=== PATIENT | male | born 1945 ===

== ENCOUNTER 2017-08-14 13:59 | Day surgery (SDC) | payer MEDICARE, OTHER ==
[~2017-08-14] VITALS: Ht 177.8 cm; Wt 82.8 kg
[~2017-08-14 13:59] MED LIST: ASPI81CH; Carbidopa-Levo1 EAC8; HYDCHL25; Simvastatin20 MG; Zestril30 MG
== END 2017-08-14 16:50 | disposition home or self-care (01) ==
LOC: ORSCSDS 13:59
PROVIDERS: Surgery
PROC: 0DBH8ZX Excision of Cecum, Via Natural or Artificial Opening Endoscopic, Diagnostic (ICD-10-PCS; principal; 2017-08-14 15:15)
PROC: 0DBK8ZX Excision of Ascending Colon, Via Natural or Artificial Opening Endoscopic, Diagnostic (ICD-10-PCS; principal; 2017-08-14 15:15)
DX: Z12.11 Encounter for screening for malignant neoplasm of colon (principal); D12.0 Benign neoplasm of cecum; D12.2 Benign neoplasm of ascending colon; I10 Essential (primary) hypertension; E78.5 Hyperlipidemia, unspecified; Z79.82 Long term (current) use of aspirin; Z79.899 Other long term (current) drug therapy; Z87.891 Personal history of nicotine dependence
CPT/HCPCS: 88305; J7120

== ENCOUNTER 2020-03-27 07:47 | Day surgery (SDC) | payer MEDICARE, OTHER ==
[~2020-03-27] VITALS: Ht 177.8 cm; Wt 82.5 kg
[~2020-03-27 07:47] MED LIST changes: +Aspir 8181 MG PO; +CARBIDOPA-LEVO1 EA15 PO; +HYDCHL25 PO; +ZOCOR20 MG PO; +Zestril30 MG PO
== END 2020-03-27 11:30 | disposition home or self-care (01) ==
LOC: ORSCSDS 07:47
PROVIDERS: Surgery
PROC: 0YU60JZ Supplement Left Inguinal Region with Synthetic Substitute, Open Approach (ICD-10-PCS; principal; 2020-03-27 09:00)
DX: K40.91 Unilateral inguinal hernia, without obstruction or gangrene, recurrent (principal); I10 Essential (primary) hypertension; E78.00 Pure hypercholesterolemia, unspecified; Z79.899 Other long term (current) drug therapy; Z79.82 Long term (current) use of aspirin
CPT/HCPCS: C1781; J0690; J1100; J1885; J2250; J2405; J2704; J3010; J7120

== ENCOUNTER 2020-10-21 22:19 | Emergency (ER) | payer MEDICARE, OTHER ==
[~2020-10-21] VITALS: Ht 175.3 cm; Wt 83.9 kg
== END 2020-10-22 03:50 | disposition home or self-care (01) ==
LOC: ER 22:19
DX: R33.9 Retention of urine, unspecified (principal); Z79.82 Long term (current) use of aspirin; Z88.0 Allergy status to penicillin; Z87.891 Personal history of nicotine dependence; Z79.899 Other long term (current) drug therapy
CPT/HCPCS: 51702; 51798; 99282-25; A9270

== ENCOUNTER → 2021-11-17 | Outpatient (CLI) | payer MEDICARE, OTHER | END | disposition home or self-care (01) | LOC: LAB 09:10 → LAB SHORT 09:10 | PROVIDERS: Hospitalist | DX: Z12.5 Encounter for screening for malignant neoplasm of prostate (principal) | CPT/HCPCS: G0103 ==